=== PATIENT | female | born 1950 | race African-American/Black ===

== ENCOUNTER 2020-12-14 09:53 | Day surgery (SDC) | payer BC, OTHER ==
[2020-12-11 09:33] VITALS: BMI 19.4
[2020-12-14 12:33] VITALS: BP 98/56; PULSE 69; TEMP 98
== END 2020-12-14 12:55 | disposition home or self-care (01) ==
LOC: FASU-ENDO 09:53
PROVIDERS: ATTEND Internal Medicine Gastroenterology
PROC: 0DJD8ZZ Inspection of Lower Intestinal Tract, Via Natural or Artificial Opening Endoscopic (ICD-10-PCS; principal; 2020-12-14 11:34)
DX: Z12.11 Encounter for screening for malignant neoplasm of colon (principal); K64.0 First degree hemorrhoids

== ENCOUNTER 2024-11-27 13:42 | Emergency (ER) | payer BC, OTHER ==
[2024-11-27 13:57] VITALS: BP 115/57; PULSE 61; RESP 18; TEMP 98; BMI 19.8
[2024-11-27] MEDS ORDERED: LIDOCAINE 5% TOPICAL PATCH ONE (15:14)
[2024-11-27] MEDS: LIDOCAINE 5% TOPICAL PATCH TP ONE (15:17)
[2024-11-27] MEDS ORDERED: LIDOCAINE PATCH REMOVAL MC SCH (22:00)
== END 2024-11-27 16:08 | disposition home or self-care (01) ==
LOC: JERFT 13:42
DX: G44.319 Acute post-traumatic headache, not intractable (principal); M25.561 Pain in right knee; M25.562 Pain in left knee; M62.838 Other muscle spasm; M54.6 Pain in thoracic spine; M79.641 Pain in right hand; M79.642 Pain in left hand; M25.531 Pain in right wrist; M25.532 Pain in left wrist; W01.198A Fall on same level from slipping, tripping and stumbling with subsequent striking against other object, initial encounter; Y93.01 Activity, walking, marching and hiking
CPT/HCPCS: 70450-TC; 72125-TC; 73110-TC-LT-FY; 73110-TC-RT-FY; 73130-TC-LT-FY; 73130-TC-RT-FY; 73562-TC-LT-FY; 73562-TC-RT-FY; 99284-25